=== PATIENT | female | born 1955 | race Caucasian/White ===

== ENCOUNTER 2019-12-22 08:03 | Inpatient (IN) | payer BC, SELFPAY ==
[2019-12-22] VITALS (64 sets, daily range): BP systolic 88–166; BP diastolic 57–123; PULSE 73–157; RESP 13–37; TEMP 36.9–39.1; O2SAT 87–98; BMI 33.5
--- NOTE | 2019-12-22 08:32 | XR_ITS ---
WS: [id number] EXAM: AP CHEST: PORTABLE UPRIGHT DATE OF EXAM: 12/22/2019, 0851 hours COMPARISON: NONE HISTORY: Patient is 64 years old with shortness of breath. COVID-19 infection. FINDINGS: The cardiac silhouette is slightly enlarged. The mediastinal contours show calcified plaque in the aorta. The pulmonary vascularity is slightly congested. The right lung is clear. There is some pat isac linear infiltrate/atelectasis left lung base. Calcified granuloma left lung base. There is no ef fusion or pneumothorax. No acute bony abnormality is seen. XR/XR chest 1V portable [id number] IMPRESSION: Slight cardiomegaly with pulmonary vascular congestion. No pulmonary edema. Slight linear infiltrate suggesting atelectasis left lung base.
--- NOTE | 2019-12-22 08:32 | ECG_ITS ---
[facility] Test Date: 2019-12-22 Pat Name: Sharri Baez Department: Room: ICU19 Gender: Female Changeover Operator: : 1955 Requested By: Opal Aquino Order Number: [id number] Landon MD: Ion Epstein M.D. Measurements Intervals [place] Rate: 100 P: 15 NV: 147 QRS: -6 QRSD: 77 T: 11 QT: 346 QTc: 447 Interpretive Statements SINUS TACHYCARDIA POSSIBLE ANTERIOR MYOCARDIAL INFARCTION , OF INDETERMINATE AGE [30 ms Q WAVE IN V3/V4, OR R < 0.2 mV IN V4] Nonspecific T wave changes in the inferior leads No previous ECG available for comparison Electronically Signed On 12-22-2019 19:40:21 CDT by Ion Epstein M.D. [id number]
--- NOTE | 2019-12-22 08:39 | W.ED.SOB ---
Documented by User: GURWINDER Rosas 12/22/19 11:33 HPI - SOB/Dyspnea General: Chief Complaint: Shortness of Breath/Dyspnea Stated Complaint: covid+/SOB Time Seen by Provider: 12/22/19 08:16 Source: patient Mode of arrival: ambulatory Limitations: no limitations History of Present Illness: HPI Narrative: Patient is a 64-year-old female who presents to ED today with a complaint of shortness of breath and positive COVID testing. Patient tells me she began developing symptoms on that started with a productive cough. Patient initially thought she might have bronchitis as she has had this previously. She was seen at a clinic in [place] and told to treat conservatively. She states over the weekend she continued to worsen. She sought evaluation on Friday and was tested for COVID on that visit. She was called today with positive results. Patient tells me she is very short of breath worse with any form of exertion. She has had fevers as high as 102. She is not having any pain. PMH is significant for GERD, HTN, hyperlipidemia, and gout. PCP is Dr. Gorman. Associated symptoms: Reports chest congestion and fever(s); Deny abdominal pain, chest pain, extremity pain, lightheadedness, nausea, palpitations, syncope or vomiting Review of Systems Const: Reports: fever(s) and body aches Eyes: Denies: change in vision, blurry vision, photophobia, floaters or seeing flashes Card: Reports: dyspnea on exertion; Denies: chest pain, palpitations, irregular heart rhythm, edema, swelling of feet/ankles, lightheadedness, syncope or pre-syncope Resp: Reports: dyspnea, productive cough and chest congestion GI: Denies: abdominal pain, nausea, vomiting or diarrhea Musc: Denies: neck pain, back pain, extremity pain, extremity swelling, joint pain or joint swelling Skin/Breast: Denies: rash Neuro: Denies: headache(s), numbness in extremities, weakness in extremities or sensory changes Physical Exam Const: COMMON NORMALS: patient oriented x3, no limitations and alert GENERAL APPEARANCE: cooperative, in distress (mild respiratory-tachypnea) and anxious NUTRITIONAL APPEARANCE: obese ORIENTATION/CONSCIOUSNESS: Yes oriented to person, Yes oriented to place and Yes oriented to time HENMT: COMMON NORMALS: normocephalic and atraumatic HEAD & SCALP: normocephalic and atraumatic Chest: COMMONS NORMALS: normal inspection of the chest and normal palpation of entire chest wall Resp: COMMON NORMALS: clear to auscultation bilaterally EFFORT & INSPECTION: Yes tachypneic AUSCULTATION: clear to auscultation bilaterally OTHER: pt satting at 88-90% on RA; pt placed on 2L O2 upon arrival Cardio: COMMON NORMALS: regular rhythm RATE: tachycardic RHYTHM: regular rhythm GI: COMMON NORMALS: Normal to inspection, nondistended, normoactive bowel sounds present, Soft to palpation, non-tender, No hepatosplenomegaly present and no masses PALPATION: Yes Soft to palpation and Yes No hepatosplenomegaly present Extremity: COMMON NORMALS: normal to inspection Neuro: YULIANA COMA SCALE: document GCS findings Yuliana coma scale eye opening: Spontaneous [place] coma scale verbal response: Orientated [place] coma scale motor response: Obey commands [place] coma scale total score: 15 COMMON NORMALS: patient oriented x3 SENSORIUM/ORIENTATION: Yes alert, Yes oriented to person, Yes oriented to place and Yes oriented to time Skin: COMMON NORMALS: no rashes or lesions noted GENERAL SKIN EXAM: no rashes or lesions noted Course Vital Signs: Vital signs: Vital Signs Pulse Rate 96 12/22/19 11:55 Respiratory Rate 27 H 12/22/19 11:55 Blood Pressure 130/80 12/22/19 11:55 Pulse Oximetry 98 12/22/19 11:55 MDM - SOB/Dyspnea MDM Narrative: Medical decision making narrative: Patient is requiring oxygen. She is tachycardic and tachypneic. Labs are very consistent with her COVID diagnosis. She was given IV dexamethasone here. Dr. Rojo has also evaluated patient and will be assuming care. He has spoken to hospitalist for admission. Lab Data: Labs: Lab Results 12/22/19 12/22/19 12/22/19 Range/Units 08:40 08:40 08:40 WBC 5.1 (4.0-10.0) 10^3/ uL RBC 4.56 (4.1-5.3) 10^6/u L Hgb 13.2 (11.5-15.3) g/dL Hct 40.5 (37.0-47.0) % MCV 88.8 (81-99) fL MCH 28.9 (28.0-34.0) pg MCHC 32.6 (30.0-36.0) g/dL RDW 14.7 (12.1-15.1) % Plt Count 118 L (130-400) 10^3/c mm MPV 14.5 H (7.4-10.4) fL Neut % (Auto) 79.4 % Lymph % (Auto) 14.4 % [place] % (Auto) 5.4 % Eos % (Auto) 0.2 % Baso % (Auto) 0.2 % Neut # (Auto) 4.08 (1.8-7.7) 10^3/u L Lymph # (Auto) 0.7 L (0.8-4.8) 10^3/u L [place] # (Auto) 0.3 (0.2-0.9) 10^3/u L Eos # (Auto) 0.0 (0.0-0.8) 10^3/u L Baso # (Auto) 0.0 (0.0-0.1) 10^3/u L Nucleated RBC % (a uto) 0 % Nucleated RBCs # 0.0 /100WBC PT 12.20 (12.1-14.9) SECO NDS INR 0.88 (0.8-1.2) APTT 26.3 (23.9-36.7) SECO NDS Fibrinogen 628 H (174-498) mg/dL D-Dimer 1.06 H (0-0.59) ug/mIFE U Sodium 133 L (136-145) mmol/L Potassium 3.7 (3.5-5.1) mmol/L Chloride 91 L (98-107) mmol/L Carbon Dioxide 26 (22-29) mmol/L Anion Gap 19.7 H (5-19) BUN 33 H (8-23) mg/dL Creatinine 1.4 H (0.5-0.9) mg/dL GFR Calculation 37.9 L (90-130) mL/min Glucose 216 H (65-115) mg/dL Calculated Osmolal ity 280 L (285-295) mOsm/k g Lactic Acid (0.5-2.2) mmol/L Calcium 7.8 L (8.5-10.5) mg/dL Magnesium 1.6 L (1.7-2.3) mg/dL Ferritin 1212 H (15-150) ng/mL Total Bilirubin 0.8 (0.15-1.2) mg/dL AST 56 H (0-32) U/L ALT 42 H (0-33) U/L Alkaline Phosphata se 92 (35-105) IU/L Creatine Kinase 38 (26-192) U/L Troponin T Gen 5 n g/L (0-10) ng/L C-Reactive Protein 87.7 H (0.0-4.9) mg/L NT-Pro-B Natriuret Pep 105 (0-125) pg/mL Total Protein 7.4 (6.6-8.7) g/dL Albumin 4.2 (3.5-5.2) g/dL Globulin 3.2 (1.3-4.6) g/dL Influenza Type A A g (Negative) Influenza Type B A g (Negative) 12/22/19 12/22/19 12/22/19 Range/Units 08:40 08:40 09:37 WBC (4.0-10.0) 10^3/ uL RBC (4.1-5.3) 10^6/u L Hgb (11.5-15.3) g/dL Hct (37.0-47.0) % MCV (81-99) fL MCH (28.0-34.0) pg MCHC (30.0-36.0) g/dL RDW (12.1-15.1) % Plt Count (130-400) 10^3/c mm MPV (7.4-10.4) fL Neut % (Auto) % Lymph % (Auto) % [place] % (Auto) % Eos % (Auto) % Baso % (Auto) % Neut # (Auto) (1.8-7.7) 10^3/u L Lymph # (Auto) (0.8-4.8) 10^3/u L [place] # (Auto) (0.2-0.9) 10^3/u L Eos # (Auto) (0.0-0.8) 10^3/u L Baso # (Auto) (0.0-0.1) 10^3/u L Nucleated RBC % (a uto) % Nucleated RBCs # /100WBC PT (12.1-14.9) SECO NDS INR (0.8-1.2) APTT (23.9-36.7) SECO NDS Fibrinogen (174-498) mg/dL D-Dimer (0-0.59) ug/mIFE U Sodium (136-145) mmol/L Potassium (3.5-5.1) mmol/L Chloride (98-107) mmol/L Carbon Dioxide (22-29) mmol/L Anion Gap (5-19) BUN (8-23) mg/dL Creatinine (0.5-0.9) mg/dL GFR Calculation (90-130) mL/min Glucose (65-115) mg/dL Calculated Osmolal ity (285-295) mOsm/k g Lactic Acid 2.5 H (0.5-2.2) mmol/L Calcium (8.5-10.5) mg/dL Magnesium (1.7-2.3) mg/dL Ferritin (15-150) ng/mL Total Bilirubin (0.15-1.2) mg/dL AST (0-32) U/L ALT (0-33) U/L Alkaline Phosphata se (35-105) IU/L Creatine Kinase (26-192) U/L Troponin T Gen 5 n g/L 14 H (0-10) ng/L C-Reactive Protein (0.0-4.9) mg/L NT-Pro-B Natriuret Pep (0-125) pg/mL Total Protein (6.6-8.7) g/dL Albumin (3.5-5.2) g/dL Globulin (1.3-4.6) g/dL Influenza Type A A g Negative (Negative) Influenza Type B A g Negative (Negative) Imaging Data^: CXR: Radiologist's impression: [address] [place] [address] XRay Report Signed Patient: Sharri Baez Unit #: [id number] : 1955 Age/Sex: 64 / F ADM Date: 12/22/19 Loc: ER Room/Bed: Attending Dr: Ordering Provider/Ordering MD: Opal Aquino Date of Service: 12/22/19 Procedure(s): XR chest 1V portable [id number] Accession Number(s): [id number] Report Number: [id number] WS: [id number] EXAM: AP CHEST: PORTABLE UPRIGHT DATE OF EXAM: 12/22/2019, 0851 hours COMPARISON: NONE HISTORY: Patient is 64 years old with shortness of breath. COVID-19 infection. FINDINGS: The cardiac silhouette is slightly enlarged. The mediastinal contours show calcified plaque in the aorta. The pulmonary vascularity is slightly congested. The right lung is clear. There is some patchy linear infiltrate/atelectasis left lung base. Calcified granuloma left lung base. There is no effusion or pneumothorax. No acute bony abnormality is seen. XR/XR chest 1V portable [id number] IMPRESSION: Slight cardiomegaly with pulmonary vascular congestion. No pulmonary edema. Slight linear infiltrate suggesting atelectasis left lung base. Dictated By: Silver Rayo MD Signed By: Silver Rayo MD Signed Date/Time: 12/22/19912 DD/ 9 Discharge Plan Discharge Patient Disposition: Admitted As Inpatient Admit Provider: Luther Phillip Clinical Impression: COVID-19 Condition: Stable Referrals: Adriel Gorman Jr, MD [Primary Care Provider] - Discharge Date/Time: 12/22/19 11:55 Coding Level of Care Code ED Maintenance Pipefitter for Chg Fwd Exam Comprehensive Documented by User: Ruiz Rojo DO 12/22/19 12:32 HPI - SOB/Dyspnea General: Chief Complaint: Shortness of Breath/Dyspnea Stated Complaint: covid+/SOB Time Seen by Provider: 12/22/19 08:16 History of Present Illness: HPI Narrative: 64-year-old female presents emergency room with complaints of shortness of breath and cough that began last night. 7 to 8 days ago she tells me she began having symptoms she was tested over this past weekend 4 days ago and received the results from a PCR test yesterday. She had this done at a local clinic we confirmed the test by getting a copy from that office. She has had some low-grade fever diarrhea and nausea. She particularly has some pain on the lower ribs on the right when she coughs or takes a deep breath. She denies dysuria urgency or frequency hematochezia melena hematemesis coffee-ground emesis MD elicited complaint: shortness of breath and cough Onset (ago): hour(s) Context: other (Recently tested positive for COVID had increasing shortness of breath and cough overnight) Timing: constant Severity: severe Exacerbating factors: exertion, movement and coughing Relieving factors: oxygen and rest Known history of: other (COVID-19) Associated symptoms: Reports chest congestion, chest pain, cough, myalgias and nausea; Deny abdominal pain, diaphoresis, dizziness, extremity pain, lightheadedness, orthopnea, palpitations, paresthesias, polydipsia, polyuria, rash, sense of impending doom, syncope, vomiting or other Treatment prior to arrival: none Review of Systems Const: Denies: diaphoresis ENMT: Denies: throat pain, ear or mastoid pain, nasal discharge or nasal congestion Card: Reports: chest pain; Denies: palpitations, lightheadedness, syncope or orthopnea Resp: Reports: chest congestion GI: Reports: nausea; Denies: abdominal pain or vomiting : Denies: flank pain, difficulty voiding, dysuria, urinary frequency or urinary urgency Musc: Denies: extremity pain Skin/Breast: Denies: rash or pruritus Neuro: Denies: dizziness Endo: Denies: polyuria or polydipsia Physical Exam Const: GENERAL APPEARANCE: cooperative ORIENTATION/CONSCIOUSNESS: Yes awake, Yes oriented to person, Yes oriented to place and Yes oriented to time HENMT: COMMON NORMALS: normocephalic, atraumatic and hearing grossly normal bilaterally HEAD & SCALP: normocephalic and atraumatic Eye: COMMON NORMALS: Equal, round and reactive pupils present, EOMs intact bilaterally, conjunctivae normal and no scleral icterus CONJUNCTIVA: Yes conjunctivae normal PUPIL: Yes Equal, round and reactive pupils present Neck/C-Spine: COMMON NORMALS: full ROM, no lymphadenopathy, supple and no JVD Lymph: LYMPHATIC: no lymphadenopathy noted and no lymphedema noted Resp: AUSCULTATION: wheezes expiratory wheezes and throughout Cardio: COMMON NORMALS: no JVD, regular rate, regular rhythm and No murmurs present (Cardio) RATE: regular rate RHYTHM: regular rhythm GI: COMMON NORMALS: Soft to palpation and No hepatosplenomegaly present AUSCULTATION: Yes normoactive bowel sounds PALPATION: Yes Soft to palpation, No Tenderness to palpation present (GI), No Guarding due to palpation present (GI) and Yes No hepatosplenomegaly present Extremity: COMMON NORMALS: normal to inspection, capillary refill normal, no clubbing, cyanosis or edema, no calf tenderness and no pedal edema Neuro: SENSORIUM/ORIENTATION: Yes oriented to person, Yes oriented to place and Yes oriented to time Skin: COMMON NORMALS: no rashes or lesions noted GENERAL SKIN EXAM: no rashes or lesions noted Course Vital Signs: Vital signs: Vital Signs Pulse Rate 96 12/22/19 11:55 Respiratory Rate 27 H 12/22/19 11:55 Blood Pressure 130/80 12/22/19 11:55 Pulse Oximetry 98 12/22/19 11:55 MDM - SOB/Dyspnea MDM Narrative: Medical decision making narrative: Discussed with Dr. Phillip who is on for the VICU. Dexamethasone has been given we both concurred to start room does severe. He does not show any PEs. Patient be admitted to the PICU for oxygen support rem does have here in dexamethasone. Lab Data: Labs: Lab Results 12/22/19 12/22/19 12/22/19 Range/Units 08:40 08:40 08:40 WBC 5.1 (4.0-10.0) 10^3/ uL RBC 4.56 (4.1-5.3) 10^6/u L Hgb 13.2 (11.5-15.3) g/dL Hct 40.5 (37.0-47.0) % MCV 88.8 (81-99) fL MCH 28.9 (28.0-34.0) pg MCHC 32.6 (30.0-36.0) g/dL RDW 14.7 (12.1-15.1) % Plt Count 118 L (130-400) 10^3/c mm MPV 14.5 H (7.4-10.4) fL Neut % (Auto) 79.4 % Lymph % (Auto) 14.4 % [place] % (Auto) 5.4 % Eos % (Auto) 0.2 % Baso % (Auto) 0.2 % Neut # (Auto) 4.08 (1.8-7.7) 10^3/u L Lymph # (Auto) 0.7 L (0.8-4.8) 10^3/u L [place] # (Auto) 0.3 (0.2-0.9) 10^3/u L Eos # (Auto) 0.0 (0.0-0.8) 10^3/u L Baso # (Auto) 0.0 (0.0-0.1) 10^3/u L Nucleated RBC % (a uto) 0 % Nucleated RBCs # 0.0 /100WBC PT 12.20 (12.1-14.9) SECO NDS INR 0.88 (0.8-1.2) APTT 26.3 (23.9-36.7) SECO NDS Fibrinogen 628 H (174-498) mg/dL D-Dimer 1.06 H (0-0.59) ug/mIFE U Sodium 133 L (136-145) mmol/L Potassium 3.7 (3.5-5.1) mmol/L Chloride 91 L (98-107) mmol/L Carbon Dioxide 26 (22-29) mmol/L Anion Gap 19.7 H (5-19) BUN 33 H (8-23) mg/dL Creatinine 1.4 H (0.5-0.9) mg/dL GFR Calculation 37.9 L (90-130) mL/min Glucose 216 H (65-115) mg/dL Calculated Osmolal ity 280 L (285-295) mOsm/k g Lactic Acid (0.5-2.2) mmol/L Calcium 7.8 L (8.5-10.5) mg/dL Magnesium 1.6 L (1.7-2.3) mg/dL Ferritin 1212 H (15-150) ng/mL Total Bilirubin 0.8 (0.15-1.2) mg/dL AST 56 H (0-32) U/L ALT 42 H (0-33) U/L Alkaline Phosphata se 92 (35-105) IU/L Creatine Kinase 38 (26-192) U/L Troponin T Gen 5 n g/L (0-10) ng/L C-Reactive Protein 87.7 H (0.0-4.9) mg/L NT-Pro-B Natriuret Pep 105 (0-125) pg/mL Total Protein 7.4 (6.6-8.7) g/dL Albumin 4.2 (3.5-5.2) g/dL Globulin 3.2 (1.3-4.6) g/dL Influenza Type A A g (Negative) Influenza Type B A g (Negative) 12/22/19 12/22/19 12/22/19 Range/Units 08:40 08:40 09:37 WBC (4.0-10.0) 10^3/ uL RBC (4.1-5.3) 10^6/u L Hgb (11.5-15.3) g/dL Hct (37.0-47.0) % MCV (81-99) fL MCH (28.0-34.0) pg MCHC (30.0-36.0) g/dL RDW (12.1-15.1) % Plt Count (130-400) 10^3/c mm MPV (7.4-10.4) fL Neut % (Auto) % Lymph % (Auto) % [place] % (Auto) % Eos % (Auto) % Baso % (Auto) % Neut # (Auto) (1.8-7.7) 10^3/u L Lymph # (Auto) (0.8-4.8) 10^3/u L [place] # (Auto) (0.2-0.9) 10^3/u L Eos # (Auto) (0.0-0.8) 10^3/u L Baso # (Auto) (0.0-0.1) 10^3/u L Nucleated RBC % (a uto) % Nucleated RBCs # /100WBC PT (12.1-14.9) SECO NDS INR (0.8-1.2) APTT (23.9-36.7) SECO NDS Fibrinogen (174-498) mg/dL D-Dimer (0-0.59) ug/mIFE U Sodium (136-145) mmol/L Potassium (3.5-5.1) mmol/L Chloride (98-107) mmol/L Carbon Dioxide (22-29) mmol/L Anion Gap (5-19) BUN (8-23) mg/dL Creatinine (0.5-0.9) mg/dL GFR Calculation (90-130) mL/min Glucose (65-115) mg/dL Calculated Osmolal ity (285-295) mOsm/k g Lactic Acid 2.5 H (0.5-2.2) mmol/L Calcium (8.5-10.5) mg/dL Magnesium (1.7-2.3) mg/dL Ferritin (15-150) ng/mL Total Bilirubin (0.15-1.2) mg/dL AST (0-32) U/L ALT (0-33) U/L Alkaline Phosphata se (35-105) IU/L Creatine Kinase (26-192) U/L Troponin T Gen 5 n g/L 14 H (0-10) ng/L C-Reactive Protein (0.0-4.9) mg/L NT-Pro-B Natriuret Pep (0-125) pg/mL Total Protein (6.6-8.7) g/dL Albumin (3.5-5.2) g/dL Globulin (1.3-4.6) g/dL Influenza Type A A g Negative (Negative) Influenza Type B A g Negative (Negative) Discharge Plan Discharge Patient Disposition: Admitted As Inpatient Admit Provider: Luther Phillip Clinical Impression: COVID-19 Condition: Stable Referrals: Adriel Gorman Jr, MD [Primary Care Provider] - Discharge Date/Time: 12/22/19 11:55 Coding Level of Care Code ED Maintenance Pipefitter for Chg Fwd Exam Comprehensive
[2019-12-22 09:17] LABS: Basophils % 0.2 %; Eosinophils % 0.2 %; Hematocrit 40.5 % (37.0-47.0); Hemoglobin 13.2 g/dL (11.5-15.3); Lymphocytes # 0.7 10^3/uL (0.8-4.8); Lymphocytes % 14.4 %; Mean Corpuscular HGB Conc 32.6 g/dL (30.0-36.0); Mean Corpuscular Hemoglobin 28.9 pg (28.0-34.0); Mean Corpuscular Volume 88.8 fL (81-99); Mean Platelet Volume 14.5 fL (7.4-10.4); Monocytes # 0.3 10^3/uL (0.2-0.9); Monocytes % 5.4 %; Neutrophils # 4.08 10^3/uL (1.8-7.7); Neutrophils % 79.4 %; Nucleated Red Blood Cells % 0 %; Platelet Count 118 10^3/cmm (130-400); Red Blood Count 4.56 10^6/uL (4.1-5.3); Red Cell Distribution Width 14.7 % (12.1-15.1); White Blood Count 5.1 10^3/uL (4.0-10.0)
[2019-12-22 09:28] LABS: INR 0.88 (0.8-1.2)
[2019-12-22 09:29] LABS: Fibrinogen 628 mg/dL (174-498); Partial Thromboplastin Time 26.3 SECONDS (23.9-36.7)
[2019-12-22 09:36] LABS: D Dimer 1.06 ug/mIFEU (0-0.59); Lactic Sepsis W/Reflex 2.5 mmol/L (0.5-2.2)
[2019-12-22 09:38] LABS: Troponin T (5th) Once 14 ng/L (0-10)
[2019-12-22 09:51] LABS: Alanine Aminotransferase 42 U/L (0-33); Albumin Level 4.2 g/dL (3.5-5.2); Alkaline Phosphatase 92 IU/L (35-105); Anion Gap 19.7 (5-19); Aspartate Amino Transferase 56 U/L (0-32); Blood Urea Nitrogen 33 mg/dL (8-23); C Reactive Protein 87.7 mg/L (0.0-4.9); Calcium 7.8 mg/dL (8.5-10.5); Carbon Dioxide 26 mmol/L (22-29); Chloride 91 mmol/L (98-107); Creatine Phosphokinase 38 U/L (26-192); Globulin 3.2 g/dL (1.3-4.6); Glomerular Filtration Rate 37.9 mL/min (90-130); Glucose 216 mg/dL (65-115); Magnesium 1.6 mg/dL (1.7-2.3); NT Pro B Type Natriuretic Pept 105 pg/mL (0-125); Osmolality Calculated 280 mOsm/kg (285-295); Potassium 3.7 mmol/L (3.5-5.1); Sodium 133 mmol/L (136-145); Total Bilirubin 0.8 mg/dL (0.15-1.2); Total Protein 7.4 g/dL (6.6-8.7)
[2019-12-22] MEDS: dexamethasone 4 mg/mL INJ 6 MG IVP ×2 (09:55→15:21)
[2019-12-22 09:59] LABS: Slide Review Slide Review Perform
[2019-12-22 10:03] LABS: Ferritin 1212 ng/mL (15-150)
--- NOTE | 2019-12-22 10:14 | CT_ITS ---
WS: [id number] CT CHEST ANGIOGRAPHY WITH REFORMATS HISTORY: dyspnea, COVID-19 TECHNIQUE: Contiguous axial images are obtained through the chest during arterial injection of intrav enous contrast. Images are reconstructed to evaluate the pulmonary arteries. MIP imaging also reviewe d. All CT scans at [facility] use at least one of these dose optimization techniques: aut omated exposure control; mA and/or kV adjustment per patient size (includes targeted exams where dose is matched to clinical indication); or iterative reconstruction. CONTRAST: Omnipaque 350; 95 mL IV. DLP: 481.59 mGy.cm COMPARISON: None available. Good opacification of the pulmonary arteries. No pulmonary embolism. Mild atherosclerosis aorta with no aneurysm. Mild intimal thickening and calcified plaque throughout the descending aorta. Cardiac ch ambers are moderately enlarged. There is no RIGHT heart strain. No pericardial or pleural effusion. There are very few scattered areas of groundglass attenuation and developing consolidations and areas of subsegmental atelectasis at the lung bases. Mild enlargement of mediastinal and hilar lymph nodes measuring up to 1.3 cm. Marked hepatic steatosis. The entire liver is not imaged. Visualized adrenal glands are negative. Increase in thoracic kyphosis. CT/CT angio chest PE protcl [id number] IMPRESSION: 1. No pulmonary embolism. 2. A few scattered groundglass opacifications and developing consolidations bi laterally. Subsegmental atelectasis at the lung bases. 3. Moderate cardiomegaly.
[2019-12-22 10:21] LABS: Influenza A by IFA Negative (Negative); Influenza B by IFA Negative (Negative)
[2019-12-22 10:59] LABS: Reflex Lactate Order REFLEX LACTIC ORDERD
[2019-12-22] MEDS: iodixanol 320 mg/mL 100mL Btl IV (11:06)
[2019-12-22 12:13] LABS: Lactic Acid level (Lactate) 1.8 mmol/L (0.5-2.2)
[2019-12-22 12:16] LABS: ABG PCO2 29.1 mmHg (35-45); ABG PH Result 7.53 (7.35-7.45); Alveolar-Arterial Oxygen Gradi 11.7 mmHg (5-10); Arterial Blood Gas Hematocrit 39.6 % (37-47); Base Excess ABG 2.1 mmol/L (-2.0-2.0); Blood Gas Allen Test Pos; Blood Gas Operator Identificat BD; Blood Gas Sample Site Brachial, left; Blood Gas Sample Type Arterial; Carboxyhemoglobin 0.8 %THgb (0.4-20.1); HCO3 ABG 24.1 mmol/L (22-26); HGB O2 Sat 97.1 % (95-100); Methemoglobin 0.8 % (0.4-1.5); Oxygen Device NC; Oxygen Saturation ABG 98.7; Potassium Level - ABG 3.5 mmol/L (3.5-5.0); Total Hemoglobin 12.9 g/dL (12-16)
--- NOTE | 2019-12-22 12:45 | PC.NURSE ---
Patient admitted to VICU from ER. Dr. Phillip at bedside to examine patient. Patient is exhibiting chills and body aches. Patient reports increased SOB at home, Sats WNL on 2L O2. Patient reports having occasional episodes of diarrhea over the past week but not every day. Oral re-hydration encouraged. Oral Temp 99.7, Verbal orders to administer tylenol now. See physical assessment. Nurse to continue to monitor.
[2019-12-22] MEDS: acetaminophen 325 mg Tablet 650 MG PO (13:00)
[2019-12-22] MEDS: magnesium sulfate premix 2 GM/50 ML PIGGYBACK IV (13:41)
--- NOTE | 2019-12-22 14:07 | PC.NURSE ---
Dr. Phillip notified patient temp has increased at reassessment. No new orders received. Nurse to continue to monitor.
--- NOTE | 2019-12-22 14:49 | P.HP_ITS ---
Providers/Chief Complaint Admitting Physician: Luther Phillip MD Primary Care Provider: Adriel Gorman Jr, MD Chief Complaint: covid+/SOB History of Present Illness Sharri Baez is a 64 year old female who reports she has been ill for 1 week. She has had some diarrhea, cough. Fever developed recently. Some nausea. Decreased p.o. intake. No vomiting. She had a COVID test done Friday, which was called as positive today. Denies any chest pain. Lots of body aches. Review of Systems General: Reports: 10 or more systems reviewed and unremarkable except in HPI a nd below Const: Reports: fever(s), chills and body aches Eyes: Denies: change in vision ENMT: Denies: throat pain Card: Denies: chest pain Resp: Reports: dyspnea and productive cough GI: Reports: nausea and diarrhea; Denies: abdominal pain or vomiting : Denies: flank pain Musc: Denies: neck pain Skin/Breast: Denies: rash Neuro: Denies: headache(s) Psych: Denies: anxiety Endo: Denies: polyuria Sundar/Lymph: Denies: enlarged lymph nodes All/Imm: Denies: urticaria Medications/Allergies Home Medications Medication Instructions Recorded Confirmed Last Taken Type allopurinol 100 mg PO DAILY 12/22/19 12/22/19 12/21/19 History atorvastatin 20 mg PO DAILY 12/22/19 12/22/19 12/21/19 History chlorthalidone 25 mg PO DAILY 12/22/19 12/22/19 12/21/19 History lisinopril See Rx Instructions .ROUTE .COMPLEX 12/22/19 12/22/19 12/21/19 Hist ory metoprolol tartrate 50 mg PO BID 12/22/19 12/22/19 12/21/19 History montelukast 10 mg PO DAILY 12/22/19 12/22/19 12/21/19 History pantoprazole 40 mg PO DAILY 12/22/19 12/22/19 12/21/19 History promethazine-codeine 5 ml PO Q4H PRN 12/22/19 12/22/19 12/21/19 History Allergies Allergy/AdvReac Type Severity Reaction Status Date / Time Penicillins Allergy Unknown Verified 12/22/19 08:47 PFSH Acute PFSH: Medical History (Updated 12/22/19 @ 14:55 by Luther Phillip MD) GERD (gastroesophageal reflux disease) Gout Hyperlipidemia Hypertension Surgical History (Updated 12/22/19 @ 14:51 by Luther Phillip MD) History of hysterectomy Family History (Updated 12/22/19 @ 14:51 by Luther Phillip MD) Other CAD (coronary artery disease) Social History (Updated 12/22/19 @ 14:52 by Luther Phillip MD) Smoking and tobacco status: never smoked Alcohol intake: never Vitals/I&O/Wt Last Vital Signs Temp 102.4 F H 12/22/19 13:45 Pulse 123 H 12/22/19 14:14 Resp 27 H 12/22/19 14:00 BP 132/94 12/22/19 14:00 Pulse Ox 92 12/22/19 14:14 Weight last 48 hrs Weight 94.347 kg Physical Exam Narrative: EXAM NARRATIVE: General exam experiencing some shaking chills HEENT: Pupils equally round. Oropharynx clear. Mucous membranes slightly dry Neck is supple no lymphadenopathy or thyromegaly Cardiovascular tachycardic, no murmur Lungs slightly coarse at the bases, no wheezing Abdomen is soft nontender with positive bowel sounds. No obvious organomegaly exam is deferred Extremities no cyanosis clubbing or edema, cap refill brisk Data : 12/22/19 08:40 12/22/19 08:40 Micro: Microbiology 12/22/19 08:42 Blood Culture - Preliminary Blood SPECIMEN COLLECTED 12/22/19 08:40 Blood Culture - Preliminary Blood SPECIMEN COLLECTED Other data: D-dimer elevated at 1.06, fibrinogen 628. ABG demonstrates a pH of 7.53, PCO2 of 29, PO2 of 100 Glucose was elevated at 226 Magnesium low at 1.6 Transaminitis, mild is noted with normal bilirubin. Troponin slightly elevated at 14 CRP elevated at 87 Influenza negative CTA minimal bilateral opacifications EKG demonstrates sinus tachycardia, left axis deviation, nonspecific ST-T wave changes.. Poor R wave progression. A&P Assessment and plan (1) Pneumonia due to COVID-19 virus: Admission to hospital Oxygen as needed Hydration Remdesivir Dexamethasone 6 mg IV every 24 hours Check pro calcitonin level Doxycycline 100 mg twice daily for now for possibility of superimposed bacterial infection Status: Acute (2) Acute kidney injury: Hydration Repeat kidney function in the morning Status: Acute (3) Dehydration: Rehydrate Status: Acute (4) Elevated glucose: Check hemoglobin A1c Status: Acute Additional A&P Information Sepsis, demonstrated by elevated lactic acid level, fever, tachycardia with existing pneumonia. Continue to hydrate, but considering history of diuretic use, significant hypertension we will keep current fluids at 100 cc an hour unless evidence of hypotension occurs. 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
[2019-12-22] MEDS: sodium chloride 0.9% 1,000 ML 100 ML IV (15:21)
[2019-12-22] MEDS: enoxaparin 40 mg/0.4 mL Syringe SUBCUT (15:21)
[2019-12-22 15:50] LABS: Estmated Average Glucose 192; Hemoglobin A1C 8.3 % (4.0-6.0)
[2019-12-22 16:01] LABS: Procalcitonin 0.57 ng/mL (0-0.5); Thyroid Stimulating Hormone 5.29 uIU/mL (0.27-4.20)
[2019-12-22] MEDS: doxycycline 100 mg Tablet PO (17:11)
[2019-12-22] MEDS: metoprolol tartrate 50 mg Tablet PO (17:11)
--- NOTE | 2019-12-22 18:45 | PC.NURSE ---
Received report on patient from Franny Rainey RN. Assumed care at this time
[2019-12-22] MEDS: atorvastatin 40 mg Tablet 20 MG PO (21:28)
[2019-12-23] VITALS (125 sets, daily range): BP systolic 93–134; BP diastolic 60–94; PULSE 0–153; RESP 14–34; TEMP 36.4–36.6; O2SAT 66–97
--- NOTE | 2019-12-23 02:35 | PC.NURSE ---
Patient up to the BSC with minimal assist. Patient stated that she had been sweating and requested her gown changed. Bath given and complete linen change done.
[2019-12-23 05:06] LABS: Basophils % 0.2 %; Hematocrit 38.4 % (37.0-47.0); Hemoglobin 12.5 g/dL (11.5-15.3); Lymphocytes # 0.7 10^3/uL (0.8-4.8); Lymphocytes % 14.8 %; Mean Corpuscular HGB Conc 32.6 g/dL (30.0-36.0); Mean Corpuscular Hemoglobin 28.9 pg (28.0-34.0); Mean Corpuscular Volume 88.7 fL (81-99); Monocytes # 0.2 10^3/uL (0.2-0.9); Monocytes % 3.4 %; Neutrophils # 3.85 10^3/uL (1.8-7.7); Neutrophils % 81.2 %; Nucleated Red Blood Cells % 0 %; Platelet Count 103 10^3/cmm (130-400); Red Blood Count 4.33 10^6/uL (4.1-5.3); Red Cell Distribution Width 14.8 % (12.1-15.1); White Blood Count 4.7 10^3/uL (4.0-10.0)
[2019-12-23 05:37] LABS: Alanine Aminotransferase 41 U/L (0-33); Albumin Level 3.6 g/dL (3.5-5.2); Alkaline Phosphatase 80 IU/L (35-105); Anion Gap 16.4 (5-19); Aspartate Amino Transferase 49 U/L (0-32); Blood Urea Nitrogen 41 mg/dL (8-23); Calcium 7.5 mg/dL (8.5-10.5); Carbon Dioxide 24 mmol/L (22-29); Chloride 93 mmol/L (98-107); Globulin 3.3 g/dL (1.3-4.6); Glomerular Filtration Rate 45.2 mL/min (90-130); Glucose 468 mg/dL (65-115); Osmolality Calculated 301 mOsm/kg (285-295); Potassium 3.4 mmol/L (3.5-5.1); Sodium 130 mmol/L (136-145); Total Bilirubin 0.5 mg/dL (0.15-1.2); Total Protein 6.9 g/dL (6.6-8.7)
[2019-12-23 05:38] LABS: C Reactive Protein 96.7 mg/L (0.0-4.9)
[2019-12-23 05:52] LABS: D Dimer 2.55 ug/mIFEU (0-0.59)
[2019-12-23 06:00] LABS: Ferritin 1470 ng/mL (15-150)
[2019-12-23 07:16] LABS: Slide Review Slide Review Perform
[2019-12-23] MEDS: potassium chloride ER 10 mEq Tablet 40 MEQ PO (07:34)
[2019-12-23] MEDS: sodium chloride 0.9% 1,000 ML 100 ML IV (07:34)
[2019-12-23 08:03] LABS: Glucose Point of Care 412 mg/dL (70-110)
[2019-12-23 08:03] LABS: Glucose Point of Care 429 mg/dL (70-110)
[2019-12-23] MEDS: insulin glargine 100 units/1 mL 20 UNIT SUBCUT ×2 (08:30→20:30)
[2019-12-23] MEDS: metoprolol tartrate 50 mg Tablet PO ×2 (08:31→17:00)
[2019-12-23] MEDS: doxycycline 100 mg Tablet PO ×2 (08:31→17:00)
[2019-12-23] MEDS: pantoprazole DR 40 mg Tablet PO (08:45)
[2019-12-23] MEDS: allopurinol 100 mg Tablet PO (10:16)
[2019-12-23 11:37] LABS: Glucose Point of Care 392 mg/dL (70-110)
--- NOTE | 2019-12-23 14:45 | PM.PN ---
Subjective Subjective: Interval history: Sharri reports she certainly feels better than yesterday. No shaking chills. Able to eat some. Medications: Reviewed: Yes Vitals/I&O/Wt Last Vital Signs Temp 97.7 F 12/23/19 12:00 Pulse 65 12/23/19 13:00 Resp 30 H 12/23/19 13:00 BP 124/87 12/23/19 13:00 Pulse Ox 93 12/23/19 13:00 12/22/19 12/23/19 12/23/19 22:59 06:59 14:59 Intake Total 960 / 960 1220 / 2180 750 / 750 Output Total 100 / 100 300 / 300 Balance 860 / 860 1220 / 2080 450 / 450 Weight last 48 hrs Weight 0 g Weight 94.347 kg Physical Exam Narrative: EXAM NARRATIVE: General exam no apparent distress Cardiovascular tachycardic, no murmur Lungs slightly coarse at the bases, no wheezing Abdomen is soft nontender with positive bowel sounds. Extremities no cyanosis clubbing or edema, cap refill brisk Data : 12/23/19 04:00 12/23/19 04:00 Micro: Microbiology 12/22/19 08:42 Blood Culture - Preliminary Blood NEGATIVE TO DATE 12/22/19 08:40 Blood Culture - Preliminary Blood NEGATIVE TO DATE A&P Assessment and plan (1) Pneumonia due to COVID-19 virus: Continue supportive care with oxygen Continue Remdesivir Continue dexamethasone 6 mg IV every 24 hours Procalcitonin level slightly elevated Doxycycline 100 mg twice daily for now for possibility of superimposed bacterial infection Status: Acute (2) Acute kidney injury: Renal function slightly improved. Reduce fluids to 50 cc an hour Status: Acute (3) Dehydration: Resolved Status: Acute (4) Elevated glucose: A1c elevated at 8.3 Initiated Lantus Initiate sliding scale Status: Acute Additional A&P Information Sepsis, resolved Mild hypomagnesia, supplemented Hypertension, hold medication as well as diuretic currently secondary to dehydration with the exception of metoprolol Hyperlipidemia, continue home medicine Gout, continue home medicine GERD, continue Protonix full code Lovenox for DVT prophylaxis. If dimer continues to increase will consider full anticoagulation. It does not appear urinalysis was checked. We will do that now. Attestations Medical Necessity Statement*: Needs continued hospitalization for IV antiviral, supportive care for Covid 19 pneumonia Coding Level of Care Code Acute Curriculum And Assessment Director for [facility] Fwd Diagnoses Pneumonia due to COVID-19 virus U07.1; J12.89 Acute kidney injury N17.9 Dehydration E86.0 Elevated glucose R73.09
[2019-12-23] MEDS: dexamethasone 4 mg/mL INJ 6 MG IVP (15:23)
[2019-12-23] MEDS: enoxaparin 40 mg/0.4 mL Syringe SUBCUT (15:23)
[2019-12-23 16:14] LABS: Glucose Point of Care 191 mg/dL (70-110)
[2019-12-23 19:19] LABS: Bilirubin Urine Neg (Negative); Blood Urine Neg (Negative); Glucose Urine UA 2+ (Normal); Ketones Urine Negative (Negative); Leukocyte Esterase Urine Trace (Negative); Nitrate Urine Negative (Negative); Protein Urine Neg (Negative); RBC Urine 0-4 /hpf (0-2); Urine Appearance Clear (CLEAR); Urine Color Yellow (Yellow); Urobilinogen Urine Neg (Negative); WBC Urine 25-40 /hpf (0-5); pH Urine 5 (5-7)
[2019-12-23 19:20] LABS: Add Urine Culture? No; Bacteria Urine 1+ /hpf
[2019-12-23] MEDS: atorvastatin 40 mg Tablet 20 MG PO (20:16)
[2019-12-23] MEDS: sodium chloride 0.9% 1,000 ML 50 ML IV (20:18)
[2019-12-23 20:46] LABS: Glucose Point of Care 142 mg/dL (70-110)
[2019-12-24] VITALS (24 sets, daily range): BP systolic 100–150; BP diastolic 59–124; PULSE 58–129; RESP 12–32; TEMP 36.5–37.1; O2SAT 90–95
[2019-12-24 05:13] LABS: Basophils % 0.1 %; Hematocrit 35.9 % (37.0-47.0); Hemoglobin 11.4 g/dL (11.5-15.3); Lymphocytes % 9.1 %; Mean Corpuscular HGB Conc 31.8 g/dL (30.0-36.0); Mean Corpuscular Hemoglobin 28.8 pg (28.0-34.0); Mean Corpuscular Volume 90.7 fL (81-99); Mean Platelet Volume 14.4 fL (7.4-10.4); Monocytes # 0.4 10^3/uL (0.2-0.9); Monocytes % 3.9 %; Neutrophils # 9.04 10^3/uL (1.8-7.7); Neutrophils % 86.5 %; Nucleated Red Blood Cells % 0 %; Platelet Count 110 10^3/cmm (130-400); Red Blood Count 3.96 10^6/uL (4.1-5.3); Red Cell Distribution Width 14.8 % (12.1-15.1); White Blood Count 10.5 10^3/uL (4.0-10.0)
[2019-12-24 05:38] LABS: Alanine Aminotransferase 42 U/L (0-33); Albumin Level 3.4 g/dL (3.5-5.2); Alkaline Phosphatase 74 IU/L (35-105); Anion Gap 14.9 (5-19); Aspartate Amino Transferase 43 U/L (0-32); Blood Urea Nitrogen 43 mg/dL (8-23); Calcium 7.3 mg/dL (8.5-10.5); Carbon Dioxide 22 mmol/L (22-29); Chloride 97 mmol/L (98-107); Creatinine Clr Calc Pharmacy 0; Glucose 319 mg/dL (65-115); Osmolality Calculated 293 mOsm/kg (285-295); Potassium 3.9 mmol/L (3.5-5.1); Sodium 130 mmol/L (136-145); Total Bilirubin 0.3 mg/dL (0.15-1.2); Total Protein 6.4 g/dL (6.6-8.7)
[2019-12-24 05:49] LABS: Procalcitonin 1.92 ng/mL (0-0.5)
[2019-12-24 05:51] LABS: D Dimer 1.47 ug/mIFEU (0-0.59)
[2019-12-24 06:03] LABS: Slide Review Slide Review Perform
[2019-12-24] MEDS: doxycycline 100 mg Tablet PO (08:53)
[2019-12-24] MEDS: pantoprazole DR 40 mg Tablet PO (08:53)
[2019-12-24] MEDS: allopurinol 100 mg Tablet PO (08:53)
[2019-12-24] MEDS: zinc gluconate 50 mg Tablet PO (08:53)
[2019-12-24] MEDS: metoprolol tartrate 50 mg Tablet PO ×2 (08:53→17:43)
[2019-12-24] MEDS: ascorbic acid 500 mg Tablet PO (08:53)
[2019-12-24 09:28] LABS: Glucose Point of Care 293 mg/dL (70-110)
[2019-12-24 10:56] LABS: Glucose Point of Care 338 mg/dL (70-110)
[2019-12-24] MEDS: levofloxacin-dextrose 5 % 750 MG/150 ML PREMIX 100 MG IV (11:54)
--- NOTE | 2019-12-24 13:18 | PM.PN ---
Subjective Subjective: Interval history: Sharri reports she feels a lot better. Still coughing. Medications: Reviewed: Yes Vitals/I&O/Wt Last Vital Signs Temp 98.2 F 12/24/19 12:00 Pulse 82 12/24/19 13:08 Resp 27 H 12/24/19 12:00 BP 126/82 12/24/19 12:00 Pulse Ox 95 12/24/19 13:08 12/23/19 12/24/19 12/24/19 22:59 06:59 14:59 Intake Total 1630 / 2480 200 / 2680 460 / 460 Output Total 300 / 600 500 / 1100 400 / 400 Balance 1330 / 1880 -300 / 1580 60 / 60 Weight last 48 hrs Weight 109.769 kg Weight 0 g Physical Exam Narrative: EXAM NARRATIVE: General exam no apparent distress Cardiovascular regular rate and rhythm without murmur Lungs a few coarse breath sounds that clear with cough Abdomen is soft nontender with positive bowel sounds. Extremities no cyanosis clubbing or edema, cap refill brisk Data : 12/24/19 04:05 12/24/19 04:05 Micro: Microbiology 12/22/19 08:42 Blood Culture - Preliminary Blood NEGATIVE TO DATE 12/22/19 08:40 Blood Culture - Preliminary Blood NEGATIVE TO DATE A&P Assessment and plan (1) Pneumonia due to COVID-19 virus: Continue supportive care with oxygen Continue Remdesivir Continue dexamethasone 6 mg IV every 24 hours Procalcitonin level slightly elevated on admission Change to Levaquin for possibility of superimposed bacterial infection as procalcitonin increasing She appears to be improving. Hopefully can wean off oxygen and discharge in the next several days. Status: Acute (2) Acute kidney injury: Renal function continues to improve. Discontinue IV fluids. Status: Acute (3) Dehydration: Resolved Discontinue fluids Status: Acute (4) Elevated glucose: A1c elevated at 8.3 Lantus initiated. Continue sliding-scale Status: Acute Additional A&P Information Sepsis, resolved. Cultures negative to date Mild hypomagnesia, supplemented Hypertension, hold medication as well as diuretic currently secondary to dehydration with the exception of metoprolol Hyperlipidemia, continue home medicine Gout, continue home medicine GERD, continue Protonix full code Lovenox for DVT prophylaxis. If dimer continues to increase will consider full anticoagulation. Attestations Medical Necessity Statement*: Needs continued hospitalization, for treatment of Covid 19 pneumonia with dexamethasone and remdesivir and supportive care with oxygen. Coding Level of Care Code Acute Clinical Documentation Spec for [facility] Fw Diagnoses Pneumonia due to COVID-19 virus U07.1; J12.89 Acute kidney injury N17.9 Dehydration E86.0 Elevated glucose R73.09
[2019-12-24] MEDS: dexamethasone 4 mg/mL INJ 6 MG IVP (15:33)
[2019-12-24] MEDS: enoxaparin 40 mg/0.4 mL Syringe SUBCUT (15:35)
[2019-12-24 16:06] LABS: Glucose Point of Care 247 mg/dL (70-110)
[2019-12-24] MEDS: atorvastatin 40 mg Tablet 20 MG PO (22:00)
[2019-12-24] MEDS: insulin glargine 100 units/1 mL 20 UNIT SUBCUT (22:00)
[2019-12-24 22:03] LABS: Glucose Point of Care 185 mg/dL (70-110)
[2019-12-25] VITALS (25 sets, daily range): BP systolic 112–173; BP diastolic 65–104; PULSE 56–77; RESP 14–35; TEMP 36.6–36.9; O2SAT 87–96
[2019-12-25 05:23] LABS: Hematocrit 35.1 % (37.0-47.0); Hemoglobin 11.3 g/dL (11.5-15.3); Lymphocytes # 1.1 10^3/uL (0.8-4.8); Lymphocytes % 11.5 %; Mean Corpuscular HGB Conc 32.2 g/dL (30.0-36.0); Mean Corpuscular Hemoglobin 28.9 pg (28.0-34.0); Mean Corpuscular Volume 89.8 fL (81-99); Mean Platelet Volume 14.4 fL (7.4-10.4); Monocytes # 0.7 10^3/uL (0.2-0.9); Neutrophils # 7.58 10^3/uL (1.8-7.7); Nucleated Red Blood Cells % 0 %; Platelet Count 110 10^3/cmm (130-400); Red Blood Count 3.91 10^6/uL (4.1-5.3); Red Cell Distribution Width 14.7 % (12.1-15.1); White Blood Count 9.4 10^3/uL (4.0-10.0)
[2019-12-25 05:52] LABS: Alanine Aminotransferase 36 U/L (0-33); Albumin Level 3.5 g/dL (3.5-5.2); Alkaline Phosphatase 79 IU/L (35-105); Anion Gap 16.8 (5-19); Aspartate Amino Transferase 35 U/L (0-32); Blood Urea Nitrogen 31 mg/dL (8-23); C Reactive Protein 31.9 mg/L (0.0-4.9); Calcium 7.8 mg/dL (8.5-10.5); Carbon Dioxide 23 mmol/L (22-29); Chloride 100 mmol/L (98-107); Globulin 3.1 g/dL (1.3-4.6); Glucose 182 mg/dL (65-115); Osmolality Calculated 293 mOsm/kg (285-295); Potassium 3.8 mmol/L (3.5-5.1); Sodium 136 mmol/L (136-145); Total Bilirubin 0.4 mg/dL (0.15-1.2); Total Protein 6.6 g/dL (6.6-8.7)
[2019-12-25 07:50] LABS: Glucose Point of Care 167 mg/dL (70-110)
[2019-12-25] MEDS: allopurinol 100 mg Tablet PO (08:41)
[2019-12-25] MEDS: metoprolol tartrate 50 mg Tablet PO ×2 (08:41→17:41)
[2019-12-25] MEDS: ascorbic acid 500 mg Tablet PO (08:41)
[2019-12-25] MEDS: pantoprazole DR 40 mg Tablet PO (08:41)
[2019-12-25] MEDS: zinc gluconate 50 mg Tablet PO (08:41)
[2019-12-25] MEDS: levofloxacin-dextrose 5 % 750 MG/150 ML PREMIX 100 MG IV (09:42)
[2019-12-25 11:34] LABS: Glucose Point of Care 199 mg/dL (70-110)
--- NOTE | 2019-12-25 13:58 | PM.PN ---
Subjective Subjective: Interval history: Sharri reports she is doing better. Just weaned off oxygen. Still very short of breath and desaturate some with exertion. Still coughing. Medications: Reviewed: Yes Vitals/I&O/Wt Last Vital Signs Temp 98.2 F 12/25/19 10:00 Pulse 77 12/25/19 12:00 Resp 19 H 12/25/19 12:00 BP 162/102 12/25/19 12:00 Pulse Ox 92 12/25/19 12:00 12/24/19 12/25/19 12/25/19 22:59 06:59 14:59 Intake Total 360 / 1192 240 / 1432 700 / 700 Output Total 1100 / 1900 400 / 2300 Balance -740 / -708 -160 / -868 700 / 700 Weight last 48 hrs Weight 107.048 kg Weight 109.769 kg Physical Exam Narrative: EXAM NARRATIVE: General exam no apparent distress Cardiovascular regular rate and rhythm without murmur Lungs clear bilaterally Abdomen is soft nontender with positive bowel sounds. Extremities no cyanosis clubbing or edema, cap refill brisk Data : 12/25/19 04:30 12/25/19 04:30 A&P Assessment and plan (1) Pneumonia due to COVID-19 virus: Hopefully she can stay off oxygen Continue Remdesivir Continue dexamethasone 6 mg IV every 24 hours Procalcitonin level slightly elevated on admission Continue Levaquin for possibility of superimposed bacterial infection as procalcitonin increasing She is improving Status: Acute (2) Acute kidney injury: Renal function is now normal Status: Acute (3) Dehydration: Resolved Status: Acute (4) Elevated glucose: A1c elevated at 8.3 Lantus initiated. Continue sliding-scale Status: Acute Additional A&P Information Sepsis, resolved. Cultures negative to date Mild hypomagnesia, supplemented Hypertension, hold medication as well as diuretic currently secondary to dehydration with the exception of metoprolol Hyperlipidemia, continue home medicine Gout, continue home medicine GERD, continue Protonix full code Lovenox for DVT prophylaxis. If dimer continues to increase will consider full anticoagulation. Attestations Medical Necessity Statement*: Needs continued hospitalization for Covid 19 pneumonia for antiviral and appendectomy. 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
[2019-12-25] MEDS: dexamethasone 4 mg/mL INJ 6 MG IVP (16:26)
[2019-12-25] MEDS: enoxaparin 40 mg/0.4 mL Syringe SUBCUT (16:26)
[2019-12-25 16:55] LABS: Glucose Point of Care 118 mg/dL (70-110)
[2019-12-25 20:38] LABS: Glucose Point of Care 306 mg/dL (70-110)
[2019-12-25] MEDS: atorvastatin 40 mg Tablet 20 MG PO (21:08)
[2019-12-25] MEDS: insulin glargine 100 units/1 mL 20 UNIT SUBCUT (21:46)
[2019-12-26] VITALS (16 sets, daily range): BP systolic 138–171; BP diastolic 71–109; PULSE 54–69; RESP 15–28; TEMP 36.5–37.1; O2SAT 90–95
[2019-12-26 05:30] LABS: Basophils % 0.2 %; Hematocrit 34.8 % (37.0-47.0); Hemoglobin 11.3 g/dL (11.5-15.3); Lymphocytes # 0.9 10^3/uL (0.8-4.8); Lymphocytes % 15.1 %; Mean Corpuscular HGB Conc 32.5 g/dL (30.0-36.0); Mean Corpuscular Volume 89.5 fL (81-99); Mean Platelet Volume 13.6 fL (7.4-10.4); Monocytes # 0.5 10^3/uL (0.2-0.9); Monocytes % 7.6 %; Neutrophils # 4.57 10^3/uL (1.8-7.7); Neutrophils % 75.9 %; Nucleated Red Blood Cells % 0 %; Platelet Count 104 10^3/cmm (130-400); Red Blood Count 3.89 10^6/uL (4.1-5.3); Red Cell Distribution Width 14.6 % (12.1-15.1)
[2019-12-26 05:57] LABS: Alanine Aminotransferase 36 U/L (0-33); Albumin Level 3.6 g/dL (3.5-5.2); Alkaline Phosphatase 83 IU/L (35-105); Aspartate Amino Transferase 38 U/L (0-32); Blood Urea Nitrogen 26 mg/dL (8-23); C Reactive Protein 29.2 mg/L (0.0-4.9); Carbon Dioxide 24 mmol/L (22-29); Chloride 99 mmol/L (98-107); Globulin 2.7 g/dL (1.3-4.6); Glucose 232 mg/dL (65-115); Osmolality Calculated 298 mOsm/kg (285-295); Sodium 138 mmol/L (136-145); Total Bilirubin 0.3 mg/dL (0.15-1.2); Total Protein 6.3 g/dL (6.6-8.7)
[2019-12-26 06:00] LABS: D Dimer 0.71 ug/mIFEU (0-0.59)
[2019-12-26 06:20] LABS: Anion Gap 19.2 (5-19); Potassium 4.2 mmol/L (3.5-5.1)
[2019-12-26 06:21] LABS: Procalcitonin 0.47 ng/mL (0-0.5)
[2019-12-26 07:18] LABS: Glucose Point of Care 205 mg/dL (70-110)
[2019-12-26] MEDS: pantoprazole DR 40 mg Tablet PO (08:26)
[2019-12-26] MEDS: allopurinol 100 mg Tablet PO (08:26)
[2019-12-26] MEDS: metoprolol tartrate 50 mg Tablet PO (08:26)
[2019-12-26] MEDS: zinc gluconate 50 mg Tablet PO (08:27)
[2019-12-26] MEDS: ascorbic acid 500 mg Tablet PO (08:27)
[2019-12-26] MEDS: levofloxacin-dextrose 5 % 750 MG/150 ML PREMIX 100 MG IV (09:53)
[2019-12-26] MEDS: levoFLOXacin 750 mg Tablet PO (10:36)
[2019-12-26 11:29] LABS: Glucose Point of Care 172 mg/dL (70-110)
--- NOTE | 2019-12-26 12:09 | P.DS_ITS ---
Discharge Providers Date of Admission: 12/22/19 10:14 Date of Discharge: December 26, 2019 Attending Provider at Admission: Luther Phillip MD Attending Provider at Discharge: Luther Phillip MD Primary Care Provider: Adriel Gorman Jr, MD Diagnoses at Discharge Discharge Diagnosis (1) Pneumonia due to COVID-19 virus: Status: Acute (2) Acute kidney injury: Status: Acute (3) Dehydration: Status: Acute (4) Elevated glucose: Status: Acute Reason for Visit Reason for Visit: covid+/SOB Hospital Course Hospital Course: Sharri is a 64-year-old white female who presented to the hospital with cough and shortness of breath. She was requiring oxygen. Pneumonia was noted on CTA. She had had a COVID test that was positive prior to coming in. She was admitted to the COVID unit, and given dexamethasone 6 mg a day along with remdesivir. She received anticoagulation with Lovenox. Secondary to concern of possible coexistence of bacterial pneumonia she was given Levaquin. During the course of her hospital stay she improved, and was able to wean off oxygen. By December 25 if she was off oxygen for 24 hours, and it was thought she could be discharged home. She will finish 5 days of Levaquin. Her hemoglobin A1c was checked while in the hospital and elevated. She was also discharged on metformin, and follow a consistent carb diet. Physical Exam Narrative: EXAM NARRATIVE: General exam no apparent distress Cardiovascular regular rate and rhythm without murmur Lungs a few bilateral crackles Abdomen is soft with positive bowel sounds Extremities no cyanosis clubbing or edema Discharge Data Data Completed and Pending: Completed Studies During Hospitalization Category Date Time Status CT angio chest PE protcl [id number] Stat Cat Scan 12/22/19 10:14 Completed XR chest 1V suzanne ble [id number] Stat Exams 12/22/19 08:32 Completed Pending at discharge Category Date Time Status Blood Culture Sta t Lab 12/22/19 08:42 Results Labs from last 24 hours 12/26/19 12/26/19 12/26/19 11:25 07:09 04:15 WBC RBC Hgb Hct MCV MCH MCHC RDW Plt Count MPV Neut % (Auto) Lymph % (Auto) Deuel % (Auto) Eos % (Auto) Baso % (Auto) Neut # (Auto) Lymph # (Auto) Deuel # (Auto) Eos # (Auto) Baso # (Auto) Nucleated RBC % (a uto) Nucleated RBCs # D-Dimer Sodium Potassium Chloride Carbon Dioxide Anion Gap BUN Creatinine GFR Calculation Glucose POC Glucose 172 205 Calculated Osmolal ity Calcium Total Bilirubin AST ALT Alkaline Phosphata se C-Reactive Protein Total Protein Albumin Globulin Procalcitonin 0.47 12/26/19 12/26/19 12/26/19 04:15 04:15 04:15 WBC 6.0 RBC 3.89 L Hgb 11.3 L Hct 34.8 L MCV 89.5 MCH 29.0 MCHC 32.5 RDW 14.6 Plt Count 104 L MPV 13.6 H Neut % (Auto) 75.9 Lymph % (Auto) 15.1 Deuel % (Auto) 7.6 Eos % (Auto) 0.0 Baso % (Auto) 0.2 Neut # (Auto) 4.57 Lymph # (Auto) 0.9 Deuel # (Auto) 0.5 Eos # (Auto) 0.0 Baso # (Auto) 0.0 Nucleated RBC % (a uto) 0 Nucleated RBCs # 0.0 D-Dimer 0.71 H Sodium 138 Potassium 4.2 Chloride 99 Carbon Dioxide 24 Anion Gap 19.2 H BUN 26 H Creatinine 0.9 GFR Calculation 63.0 L Glucose 232 H POC Glucose Calculated Osmolal ity 298 H Calcium 8.0 L Total Bilirubin 0.3 AST 38 H ALT 36 H Alkaline Phosphata se 83 C-Reactive Protein 29.2 H Total Protein 6.3 L Albumin 3.6 Globulin 2.7 Procalcitonin 12/25/19 12/25/19 20:33 16:51 WBC RBC Hgb Hct MCV MCH MCHC RDW Plt Count MPV Neut % (Auto) Lymph % (Auto) Deuel % (Auto) Eos % (Auto) Baso % (Auto) Neut # (Auto) Lymph # (Auto) Deuel # (Auto) Eos # (Auto) Baso # (Auto) Nucleated RBC % (a uto) Nucleated RBCs # D-Dimer Sodium Potassium Chloride Carbon Dioxide Anion Gap BUN Creatinine GFR Calculation Glucose POC Glucose 306 118 Calculated Osmolal ity Calcium Total Bilirubin AST ALT Alkaline Phosphata se C-Reactive Protein Total Protein Albumin Globulin Procalcitonin Vitals: Last Vital Signs Temp 97.7 F 12/26/19 09:00 Pulse 57 L 09/20/20 11:00 Resp 21 H 12/26/19 11:00 BP 157/104 12/26/19 11:00 Pulse Ox 92 12/26/19 11:00 Discharge Plan Discharge Patient Disposition: Home Condition: Stable Prescriptions: New metformin 500 mg tablet 500 mg PO BID Qty: 60 RF: 0 levofloxacin 750 mg Tablet 750 mg PO DAILY Qty: 5 RF: 0 Continued atorvastatin 20 mg tablet 20 mg PO DAILY RF: 0 lisinopril 20 mg tablet See Rx Instructions .ROUTE .COMPLEX RF: 0 promethazine-codeine 6.25-10 mg/5 mL syrup 5 ml PO Q4H PRN (Reason: Cough) RF: 0 chlorthalidone 25 mg tablet 25 mg PO DAILY RF: 0 allopurinol 100 mg tablet 100 mg PO DAILY RF: 0 pantoprazole 40 mg tablet,delayed release (DR/EC) 40 mg PO DAILY RF: 0 metoprolol tartrate 50 mg tablet 50 mg PO BID RF: 0 montelukast 10 mg tablet 10 mg PO DAILY RF: 0 Discharge Orders: Discharge Order (Routine); Ordered 12/26/19 Ordered By: Luther Phillip Referrals: Adriel Gorman Jr, MD [Primary Care Provider] - 1-3 days Discharge Diet: Diabetic Discharge Activity: Increase activity as tolerated Activity Restrictions/Additional Instructions: Follow-up with your primary care provider by telehealth in the next 3 days. Home oxygen evaluation prior to discharge. Return for any concerns Follow quarantine as directed by [facility] department Follow consistent carb diet. Please give the diet information prior to discharge. For now will just start metformin 500 mg twice daily. 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
--- NOTE | 2019-12-28 12:06 | PC.SOCIAL ---
This music writer spoke with the patient Sharri Malone [phone] on the phone. At the moment the patient was very short of breath, she stated that it was because she had just got out of the shower. She stated that she was doing well, just worried about her who is not in the VICU here at [facility]. She stated that there was a possibility that he may transfer out to another hospital as his symptoms were getting worst. I asked if she had been scheduled an appointment with Dr. Gorman her PCP at discharge, she stated that she was but because she is not able to do virtual telehealth, Dr. Gorman called her and did her appointment that way. She stated that she went over all her symptoms and her temps as well as her sugar levels with him. I asked if he explained and troubling symptoms that would suggest a visit or call to the doctor or emergency room. SHe stated that he did. I also went over the symptoms such as trouble breathing, shortness of breath, chest pain and or pressure lasting more than 5 minutes, confusion or hard to wake, lips or face being blue and a temperature of 104 or greater. She stated that she had none of those symptoms at this time. As for medications, she had no questions. She stated that she was placed on an antibiotic due to the pneumonia and also insulin. She said she had no problem getting her medications. I took the liberty to educate her more on the Coronavirus. I spoke with her on ways the virus can be spread, especially since she has a sister at home helping her. I mentioned social distancing 6 ft or more, wearing masks even cloth masks, washing her hands for no less than 20 seconds with a good lather, cleaning surfaces, not touching her face if possible, when she coughs or sneezes to turn her face or use a tissue. We also spoke a little about ways to keep her immune system healths. Healthy habits to help with this would be eating healthy foods such as fruits and vegetables, lean meats, low fat dairy etc. The last topic of discussion was about plasma donation. 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 I informed her that now that she has had the Covid 19, her plasma would be valuable as she may help others to lessen their more sever symptoms. Others such as patients similar to her who seem to be more critical. I asked if she would like for me to send her information on plasma donation, she stated that she would like that.
== END 2019-12-26 14:10 | disposition home or self-care (01) | DRG 871 ==
LOC: ER 11:33 → ICU 11:52
PROVIDERS: Family Medicine; Physician Assistant; Admitting Provider Internal Medicine; PCP Family Medicine; Visit Provider Internal Medicine
DX: A41.9 Sepsis, unspecified organism (principal); U07.1 COVID-19; J12.89 Other viral pneumonia; N17.9 Acute kidney failure, unspecified; K21.9 Gastro-esophageal reflux disease without esophagitis; M10.9 Gout, unspecified; E78.5 Hyperlipidemia, unspecified; I10 Essential (primary) hypertension; E86.0 Dehydration; E83.42 Hypomagnesemia; R73.09 Other abnormal glucose
CPT/HCPCS: 12345; 36415; 36416; 36600; 71045; 71275; 80051; 80053; 81001; 82550; 82728; 82810; 82962; 83036; 83605; 83735; 83880; 83986; 84145; 84443; 84484; 85025; 85378; 85384; 85610; 85730; 86140; 87040; 87804; 93005; 96372; 96375; 99283; J1100; J1650; J1815 ×2; J1956; J3475; J7030; Q9967

== ENCOUNTER 2021-01-11 13:42 | Outpatient (CLI) | payer BC, SELFPAY ==
--- NOTE | 2021-01-11 13:51 | MM_ITS ---
WS: [id number] BILATERAL DIGITAL SCREENING MAMMOGRAPHY WITH CAD CLINICAL INFORMATION: SCREENING HISTORY: Screening mammogram. No current complaints. COMPARISON: June 15, 2008 TECHNIQUE: Bilateral CC and MLO views. FINDINGS: Scattered fibroglandular densities bilaterally. No suspicious focal mass, asymmetry, calcifications, or architectural distortion. No evidence of malignancy. Stable punctate calcifications right breast. Stable subareolar calcification left breast. MM/[place] [id number] IMPRESSION: BI-RADS: 2-Benign FOLLOW UP: 1 Year Follow-up Recommend return to annual screening mammography.
== END 2021-01-11 13:43 | disposition home or self-care (01) ==
PROVIDERS: PCP Family Medicine; Visit Provider Family Medicine
DX: Z12.31 Encounter for screening mammogram for malignant neoplasm of breast (principal)
CPT/HCPCS: 77067

== ENCOUNTER 2024-01-22 15:40 | Outpatient (CLI) | payer MEDICARE, SELFPAY ==
--- NOTE | 2024-01-22 15:40 | MM_ITS ---
WS: [id number] SCREENING DIGITAL BREAST TOMOSYNTHESIS MAMMOGRAM WITH CAD HISTORY: SCREENING COMPARISON: 01/11/2021, 06/15/2008 Bilateral CC and MLO with tomosynthesis and synthetic mammography submitted. Computer aided detection analyzed. Breast composition: The breasts are heterogeneously dense, which may obscure small masses. New high d ensity ovoid mass with slightly lobulated margins is identified in the LEFT breast near 3:00 at a mid to posterior depth. Additional developing calcifications and increased soft tissue retroareolar. MM/MM scr BI tomosynthesis [id number] IMPRESSION: BI-RADS: 0 - Incomplete: Need additional imaging evaluation FOLLOW UP: Need Additional Imaging LEFT breast: Spot compression views (CC and MLO). True ML. Ultrasound to follow if abnormality persists. LEFT BREAST: Magnification views of suspicious calcification CC and MLO. True M L.
== END 2024-01-22 15:41 | disposition home or self-care (01) ==
LOC: MOBLMAM 15:44
PROVIDERS: PCP Family Medicine; Visit Provider Family Medicine
DX: Z12.31 Encounter for screening mammogram for malignant neoplasm of breast (principal); R92.333 Mammographic heterogeneous density, bilateral breasts; N63.23 Unspecified lump in the left breast, lower outer quadrant; R92.1 Mammographic calcification found on diagnostic imaging of breast
CPT/HCPCS: 77063; 77067

== ENCOUNTER 2024-02-06 12:40 | Outpatient (CLI) | payer MEDICARE, SELFPAY ==
--- NOTE | 2024-02-06 12:45 | XR_ITS ---
WS: [id number] DEXA (DUAL ENERGY X-RAY ABSORPTIOMETRY) Bone mineral density was performed using a Open[employer] machine. HISTORY: POSTMENOPAUSAL COMPARISON: None available. Lumbar spine BMD (L1-L4): 0.999 g/cm2 T score: -1.5 Z score: -0.6 Total hip BMD: Left: 0.948 g/cm2. T score: -0.5 Z score: 0.4 Right: 0.963 g/cm2. T score: -0.4 Z score: 0.5 10 year probability of a major osteoporotic fracture is 8%. XR/XR DEXA axial skeleton* [id number] IMPRESSION: OSTEOPENIA based upon the WHO classification for females.
== END 2024-02-06 12:41 | disposition home or self-care (01) ==
PROVIDERS: PCP Electrodiagnostic Medicine; Visit Provider Nurse Practitioner Family
DX: Z13.820 Encounter for screening for osteoporosis (principal); Z78.0 Asymptomatic menopausal state; M85.80 Other specified disorders of bone density and structure, unspecified site
CPT/HCPCS: 77080

== ENCOUNTER 2024-03-01 09:24 | Outpatient (CLI) | payer MEDICARE, SELFPAY ==
--- NOTE | 2024-03-01 09:25 | MM_ITS ---
WS: [id number] ADDITIONAL VIEWS LEFT MAMMOGRAM with tomosynthesis. LEFT BREAST ULTRASOUND HISTORY: ABNORMAL MAMMO COMPARISON: 01/22/2024, 01/11/2021 LEFT MAMMOGRAM: Spot compression views and true ML with tomosynthesis and sympathetic mammography. Ma gnification views calcifications LEFT breast have been obtained. There is several calcifications closely associated with each other. Some of these are coarse. These c alcifications may have been present on prior exams but not as well visualized due to the technique. R ecommend 6-month additional follow-up of these calcifications to ensure there is no progression or ch raj in the composition. Irregular high density soft tissue mass in the lateral LEFT breast near 3:00 at a middle to posterior depth. Mass measures 1.5 x 1.9 x 1.2 cm. There may be ductal extension. LEFT BREAST ULTRASOUND 2-D and color Doppler imaging submitted. Ultrasound is directed in the LEFT breast near 3:00. There is an ovoid 3 minimally irregular cyst aj ntified. No additional masses or calcifications identified in this location. Cyst measures 1.1 x 0.6 x 0.9 cm. Cyst is measuring smaller than the mammographic abnormality which may be due to adjacent so ft tissue. The surrounding area was also imaged for additional abnormality. MM/MM diag LT tomosynthesis [id number] IMPRESSION: BI-RADS: 3- Probably Benign FOLLOW UP: 6 Month Follow-up Recommend LEFT breast mammogram follow-up of the calcifications. Magnification views of the calcifications can be performed. The heterogeneity also can be ree valuated in the LEFT breast which is noted to be a cyst by ultrasound. I did discuss this with the patient.
== END 2024-03-01 09:25 | disposition home or self-care (01) ==
LOC: RAD 09:25
PROVIDERS: PCP Electrodiagnostic Medicine; Visit Provider Electrodiagnostic Medicine
DX: N60.02 Solitary cyst of left breast (principal); R92.1 Mammographic calcification found on diagnostic imaging of breast
CPT/HCPCS: 76642; 77061; G0279

== ENCOUNTER 2024-09-07 13:34 | Outpatient (CLI) | payer MEDICARE, SELFPAY ==
--- NOTE | 2024-09-07 13:40 | MM_ITS ---
WS: [id number] Diagnostic LEFT MAMMOGRAM WITH DIGITAL BREAST TOMOSYNTHESIS. LEFT breast ultrasound, limited HISTORY: L BREAST MASS and calcifications. COMPARISON: 03/01/2024, 01/22/2024 and 01/11/2021 Spot compression views LEFT breast in CC, MLO projections and true ML submitted with digital breast tomosynthesis and SM. Additional magnification views LEFT breast calcifications. Breast composition: The breasts are heterogeneously dense, which may obscure small masses. Calcifications in the anterior, retroareolar LEFT breast are stable. These are smoothly rounded calcifications with no irregularity. Also reidentified is an area of increased density in the lateral LEFT breast near 3:00 measuring 13 x 8 x 7 mm. Margins are slightly irregular. This was noted to be a cyst on a prior study. Follow-up ultrasound will be performed today. LEFT breast ultrasound, limited. Simple cyst LEFT breast at 3:00, 6 cm from the nipple measures 0.9 x 0.8 x 0.5 cm and has not changed in size or appearance since the prior study. No new associated mass or adjacent mass. MM/MM diag LT tomosynthesis [id number] IMPRESSION: BI-RADS: 2 - Benign FOLLOW UP: 1 Year Follow-up Recommend return to annual screening mammography.
== END 2024-09-07 13:35 | disposition home or self-care (01) ==
LOC: RAD 13:38
PROVIDERS: PCP Electrodiagnostic Medicine; Visit Provider Electrodiagnostic Medicine
DX: N63.20 Unspecified lump in the left breast, unspecified quadrant (principal); R92.333 Mammographic heterogeneous density, bilateral breasts; R92.1 Mammographic calcification found on diagnostic imaging of breast; N60.02 Solitary cyst of left breast
CPT/HCPCS: 76642; 77061; G0279